=== PATIENT | male | born 1990 | race Caucasian/White ===

== ENCOUNTER 2023-10-24 19:38 | Emergency (ER) | payer OTHER ==
[2023-10-24 19:45] VITALS: BP 143/98; PULSE 83; RESP 16; TEMP 98.1; BMI 28.0
== END 2023-10-24 20:19 | disposition home or self-care (01) ==
LOC: FER 19:38
DX: M79.645 Pain in left finger(s) (principal); W22.8XXA Striking against or struck by other objects, initial encounter
CPT/HCPCS: 73140-TC-LT-FY; 99283-25